=== PATIENT | female | born 1975 | race Caucasian/White ===

== ENCOUNTER 2017-02-03 13:17 | Emergency (ER) | payer BC ==
[~2017-02-03] VITALS: Ht 147.3 cm; Wt 65.8 kg
[~2017-02-03 13:17] MED LIST: CYMBALTA20 MG; MOTRIN800 M1; NORCO 10/325 MG1 TAB; SOMA250 MG PO
[2017-02-03 13:27] VITALS: BP 143/93
--- NOTE | 2017-02-03 13:59 | NUR ---
PATIENT PRESENTS TO ED WITH LEFT FLANK PAIN X 1 DAY. PT STATES SHE HAS NAUSEA . DENIES V/D; SKIN IS PINK/WARM/DRY; AAOX4 WITH EVEN AND STEADY GAIT; PT DENIES ANY FEVER, CP, SOB, OR COUGH AT THIS TIME; PATIENT STATES PAIN OF 10/10 AT THIS TIME; VSS; PATIENT POSITIONED FOR COMFORT; HOB ELEVATED;
[2017-02-03] MEDS ORDERED: KETOROLAC 60 MG/2 ML VIAL IM ONE (14:00)
--- NOTE | 2017-02-03 14:08 | NUR ---
PATIENT TAKEN TO CT VIA WHEEL CHAIR
--- NOTE | 2017-02-03 14:21 | NUR ---
PATIENT RETURED FROM CT, SITTING IN BED RESTING
--- NOTE | 2017-02-03 15:02 | NUR ---
Patient discharged with v/s stable. Written and verbal after care instructions given and explained. Patient alert, oriented and verbalized understanding of instructions. Ambulatory with steady gait. All questions addressed prior to discharge. ID band removed. Patient advised to follow up with PMD. Rx of CIPRO, FLAGYL, NORCO, MOTRIN given. Patient educated on indication of medication including possible reaction and side effects. Opportunity to ask questions provided and answered.
[2017-02-03 15:04] VITALS: BP 143/93
== END 2017-02-03 15:02 | disposition home or self-care (01) ==
LOC: MED 13:17
DX: K57.32 Diverticulitis of large intestine without perforation or abscess without bleeding (principal); J45.909 Unspecified asthma, uncomplicated; Z88.5 Allergy status to narcotic agent
CPT/HCPCS: 36415; 74176; 80053; 81001; 81025; 83690; 85025; 87086; 96372; 99285; J1885

== ENCOUNTER 2021-05-15 09:16 | Inpatient (IN) | payer BC, SELFPAY ==
[~2021-05-15] VITALS: Ht 147.3 cm; Wt 68.0 kg
[2021-05-15 09:27] VITALS: BP 124/67
--- NOTE | 2021-05-15 09:32 | NUR ---
Patient ambulated to bed 11. RN evaluating the patient at bedside.
[2021-05-15] MEDS ORDERED: MORPHINE SULFATE 4 MG/ML SYR ONE (09:46)
[2021-05-15] MEDS ORDERED: ONDANSETRON 4 MG/2 ML VIAL ONE (09:46)
[2021-05-15] MEDS ORDERED: MORPHINE SULFATE 4 MG/ML SYR IVP ONE (09:55)
[2021-05-15] MEDS ORDERED: ONDANSETRON 4 MG/2 ML VIAL IVP ONE (09:55)
--- NOTE | 2021-05-15 10:00 | NUR ---
PATIENT PRESENTS TO ED WITH ABD PAIN X1 WEEK, LOWER BACK PAIN X1 WEEK . PT STATES SHE HAS NOT HAD BM IN 9 DAYS . DENIES V/D; SKIN IS PINK/WARM/DRY; AAOX4 WITH EVEN AND STEADY GAIT; LUNGS CLEAR BL; HR EVEN AND REGULAR; PT DENIES ANY FEVER, CP, SOB, OR COUGH AT THIS TIME; PATIENT STATES PAIN OF 10/10 AT THIS TIME, STATES PAIN IS RADIATING THROUGHOUT ENTIRE ABDOMEN; VSS; PATIENT POSITIONED FOR COMFORT; HOB ELEVATED; BEDRAILS UP X2; BED DOWN. ER MD MADE AWARE OF PT STATUS.
--- NOTE | 2021-05-15 10:26 | NUR ---
PATIENT STATES PAIN HAS IMPROVED AT THIS TIME, PAIN IS STILL 5/10
[2021-05-15] MEDS ORDERED: DOXYCYCLINE 100 MG in DEXTROSE 5% 100 ML IV STA (11:42)
[2021-05-15] MEDS ORDERED: cefOXitin 2,000 MG in DEXTROSE 5% 50 ML IV ONE (11:45)
[2021-05-15 11:53] LABS: BASOPHILS # (AUTO) 0.2 K/uL (0.00-0.22); BASOPHILS % (AUTO) 1.1 % (0.0-2.0); EOSINOPHILS # (AUTO) 0.1 K/uL (0-0.4); EOSINOPHILS % (AUTO) 0.7 % (0.0-4.0); HEMATOCRIT 26.8 % (36-48); HEMOGLOBIN 9.2 g/dL (12.0-16.0); LYMPHOCYTES % (AUTO) 7.2 % (20.5-51.1); MEAN CORPUSCULAR HEMOGLOBIN 29 pg (27-31); MEAN CORPUSCULAR HGB CONC 34 g/dL (33-37); MEAN CORPUSCULAR VOLUME 85.8 fL (80-94); MONOCYTES # (AUTO) 0.6 K/uL (0.8-1.0); MONOCYTES % (AUTO) 4.5 % (1.7-9.3); NEUTROPHILS # (AUTO) 11.9 K/uL (1.8-7.7); NEUTROPHILS % (AUTO) 86.5 % (42.2-75.2); PLATELET COUNT (AUTO) 401 K/uL (140-450); RED BLOOD CELL COUNT(AUTO) 3.12 MIL/uL (4.20-5.40); RED CELL DISTRIBUTION WIDTH 13.4 % (11.6-13.7); WHITE BLOOD COUNT (AUTO) 13.8 K/uL (4.8-10.8)
[2021-05-15] MEDS ORDERED: DOXYCYCLINE 100 MG VIAL IV ONE (12:07)
[2021-05-15] MEDS ORDERED: KETOROLAC 30 MG/ML VIAL IVP ONE (12:15)
[2021-05-15] MEDS ORDERED: NACL 0.9% 1,000 ML IV ONE (14:00)
[2021-05-15 14:02] LABS: ALBUMIN 2.5 g/dL (3.4-5.0); ANION GAP 9.8 (8-16); CARBON DIOXIDE 28.7 mmol/L (21-32); CREATININE 0.8 mg/dL (0.6-1.3); POTASSIUM 3.5 mmol/L (3.5-5.1); TOTAL BILIRUBIN 0.5 mg/dL (0.0-1.0)
[2021-05-15 14:38] LABS: BILIRUBIN,URINE 1+ (NEGATIVE); BLOOD, URINE 2+ (NEGATIVE); COLOR,URINE YELLOW (YELLOW); LEUKOCYTE ESTERASE ,URINE TRACE (NEGATIVE); NITRITE, URINE POSITIVE (NEGATIVE); PH,URINE 6.5 (5.0-9.0); UGLUCOSE NEGATIVE (NEGATIVE)
[2021-05-15 14:50] LABS: APPEARANCE,URINE HAZY (CLEAR)
[2021-05-15 14:58] LABS: WBC,URINE 0-5 /HPF (0-5)
--- NOTE | 2021-05-15 15:09 | NUR ---
Spoke with admitting Dr. Duran and pt was down graded to med/surg
--- NOTE | 2021-05-15 16:13 | NUR ---
Patient will be admitted to care of [facility]. Admited to MED/SURG. Will go to room 112A. Belongings list completed. Report to RICH LOVING.
--- NOTE | 2021-05-15 16:30 | NUR ---
RECEIVED PT ALERT, AWAKE ORIENTED, AT BEDSIDE, PATIENT COOPERATIVE SKIN INTACT, ORIENT TO ROOM , CALL LIGHT, IV NORMAL SALINE STARTED 120ML, IV SITE INTACT, PATIENT AWARE NPO, ABDOMEN SOFT, HYPOACTIVE BOWEL SOUNDS, LAST BM 05/06, WILL INFORM MD, SKIN INTACT, NO NAUSE AND VOMITTING NOTED AT THIS TIME
[2021-05-15 16:47] VITALS: BP 104/62
--- NOTE | 2021-05-15 18:37 | NUR ---
PT IS RESTING IN BED, EDUCATION PROVIDED ON ENSURING PAIN DOES NOT BECOME UNTOLERABLE. PT IS STABLE. ALL SAFETY MEASURES IN PLACE, CALL LIGHT WITHIN REACH. WILL CONTINUE TO MONITOR.
--- NOTE | 2021-05-15 19:06 | NUR ---
PT ENDORSED TO MULTIPLE SCLEROSIS NURSE NURSE FOR CONTINUITY OF CARE. POC DISCUSSED
--- NOTE | 2021-05-15 19:07 | NUR ---
RECEIVED PATIENT FROM AM NURSE FOR CONTINUITY OF CARE. PATIENT IS A/A/O X4. RESTING IN BED, RESPIRATORY EVEN AND UNLABORED, ON ROOM AIR, NO SIGN OF DISTRESS NOTED. ABDOMEN SOFT, NON DISTENDED, MINIMAL TENDERNESS ON LEFT LOWER QUADRANT WITH DEEP PALPATION, BOWEL SOUND HYPOACTIVE, LAST BM WAS 05/06/2021. INFORMED MD BY AM NURSE. SKIN WARM, DRY, NON DIAPHORETIC, IV ON LEFT AC 20G, INTACT AND PATENT, IS INFUSING FLUID ORDER. PATIENT DENIES ANY PAIN OR DISCOMFORT. ABLE TO MAKE NEED KNOWN. PLAN OF CARE DISCUSSED, PATIENT VERBALIZED UNDERSTANDING. CALL LIGHT WITHIN REACH. WILL CONTINUE TO MONITOR.
[2021-05-15 20:00] VITALS: BP 96/54
--- NOTE | 2021-05-15 21:26 | NUR ---
TEXT DR WHITNEY TO INFORM THAT PATIENT COMPLAINS PAIN, PATIENT HAS NO PAIN MEDICATION PRN. TORB MORPHINE 2MG IV Q4H FOR MOD PAIN. MORPHINE 4MG IV Q4H FOR SEVERE PAIN. WILL FOLLOW ORDER.
[2021-05-15] MEDS: DOXYCYCLINE 100 MG in DEXTROSE 5% 100 ML IV SCH (21:27)
--- NOTE | 2021-05-15 21:27 | NUR ---
SCHEDULE MEDIATION GIVEN WITH EDUCATION. PATIENT VERBALIZED UNDERSTANDING. NO SIGN OF DISTRESS. CALL LIGHT WITHIN REACH. WILL CONTINUE TO MONITOR.
[2021-05-15] MEDS ORDERED: MORPHINE SULFATE 4 MG/ML SYR IVP PRN (21:35)
[2021-05-15] MEDS ORDERED: MORPHINE SULFATE 2 MG/ML SYR ONE (21:46)
--- NOTE | 2021-05-15 22:01 | NUR ---
PRN PAIN MEDICATION GIVEN WITH EDUCATION, PATIENT VERBALIZED UNDERSTANDING. PATIENT TOLERATED WELL. CALL LIGHT WITHIN REACH. WILL CONTINUE TO MONITOR.
--- NOTE | 2021-05-16 | NUR ---
ROUND CHECK. PATIENT IS SLEEPING, CHEST RISE AND FALL, NO SIGN OF DISTRESS NOTED. CALL LIGHT WITHIN REACH. WILL CONTINUE TO MONITOR.
--- NOTE | 2021-05-16 02:00 | NUR ---
ROUND CHECK. PATIENT IS SLEEPING, CHEST RISE AND FALL, NO SIGN OF DISTRESS NOTED. CALL LIGHT WITHIN REACH. WILL CONTINUE TO MONITOR.
[2021-05-16 04:00] VITALS: BP 105/65
--- NOTE | 2021-05-16 04:00 | NUR ---
PATIENT COMPLAINS PAIN ON LEFT LOWER ABDOMEN 6/10. PRN PAIN MEDICATION GIVEN WITH EDUCATION, PATIENT VERBALIZED UNDERSTANDING. TEMP 99.7F, COOLING MEASURE APPLIED, PATIENT TOLERATED WELL. CALL LIGHT WITHIN REACH. WILL CONTINUE TO MONITOR.
[2021-05-16] MEDS: MORPHINE SULFATE 2 MG/ML SYR IVP PRN ×4 (04:06→18:18)
--- NOTE | 2021-05-16 06:00 | NUR ---
RECHECK TEMP 99.[address] WHITNEY, WAITING FOR RESPONSE. PATIENT IS STABLE, DENIES ANY CHILL OR SWEATING. SKIN WARM, DRY, NON DIAPHORETIC. WILL CONTINUE TO MONITOR.
--- NOTE | 2021-05-16 07:05 | NUR ---
ENDORSED PATIENT TO AM NURSE FOR CONTINUITY OF CARE. PATIENT STABLE.
--- NOTE | 2021-05-16 07:20 | NUR ---
RECEIVED REPORT FROM SCREW MACHINE REPAIRER NURSE FOR CONTINUITY OF CARE. PATIENT SLEEPING IN BED. BREATHING EVEN AN UNLABORED. ALL SAFETY MEASURES IN PLACE WILL CONTINUE TO MONITOR.
--- NOTE | 2021-05-16 08:44 | NUR ---
PATIENT HAS BEEN SCREENED AND CATEGORIZED HIGH NUTRITION RISK. PATIENT WILL BE SEEN WITHIN 1-2 DAYS OF ADMISSION. 05/16/21-05/17/[address]
[2021-05-16] MEDS ORDERED: ZOLPIDEM 5 MG TAB PO PRN (09:20)
[2021-05-16] MEDS ORDERED: POTASSIUM CHLORIDE 10 MEQ TABER PO PRN (09:20)
[2021-05-16] MEDS ORDERED: MAG SULF 2000 MG/WATER PREMIX 50 ML IV PRN (09:20)
[2021-05-16] MEDS: NACL 0.9% 1,000 ML IV SCH ×2 (09:20→17:40)
[2021-05-16] MEDS ORDERED: ACETAMINOPHEN 325 MG TAB PO PRN (09:20)
[2021-05-16] MEDS ORDERED: ONDANSETRON 4 MG/2 ML VIAL IM/IVP PRN (09:20)
[2021-05-16] MEDS ORDERED: DOCUSATE SODIUM 100 MG GELCAP PO PRN (09:20)
[2021-05-16] MEDS ORDERED: LORazepam 2 MG/ML VIAL IM/IVP PRN (09:20)
--- NOTE | 2021-05-16 09:47 | NUR ---
PATIENT AWAKE IN BED. BREATHING IS EVEN AN UNLABORED. FAMILY AT BEDSIDE. ALL SAFETY MEASURES IN PLACE WILL CONTINUE TO MONITOR.
[2021-05-16] MEDS ORDERED: PANTOPRAZOLE 40 MG INJ VIAL IVP SCH (10:20)
[2021-05-16 10:53] LABS: BASOPHILS % (AUTO) 0.1 % (0.0-2.0); EOSINOPHILS # (AUTO) 0.1 K/uL (0-0.4); EOSINOPHILS % (AUTO) 0.8 % (0.0-4.0); HEMATOCRIT 28.7 % (36-48); HEMOGLOBIN 9.6 g/dL (12.0-16.0); LYMPHOCYTES # (AUTO) 0.8 K/uL (2.5-16.5); LYMPHOCYTES % (AUTO) 6.2 % (20.5-51.1); MEAN CORPUSCULAR HEMOGLOBIN 29 pg (27-31); MEAN CORPUSCULAR HGB CONC 34 g/dL (33-37); MEAN CORPUSCULAR VOLUME 86.5 fL (80-94); MONOCYTES # (AUTO) 0.5 K/uL (0.8-1.0); MONOCYTES % (AUTO) 3.9 % (1.7-9.3); NEUTROPHILS # (AUTO) 11.9 K/uL (1.8-7.7); PLATELET COUNT (AUTO) 450 K/uL (140-450); RED BLOOD CELL COUNT(AUTO) 3.32 MIL/uL (4.20-5.40); RED CELL DISTRIBUTION WIDTH 13.7 % (11.6-13.7); WHITE BLOOD COUNT (AUTO) 13.4 K/uL (4.8-10.8)
[2021-05-16] MEDS: DOXYCYCLINE 100 MG in DEXTROSE 5% 100 ML IV SCH (10:57)
[2021-05-16 11:08] LABS: PROTHROMBIN TIME 10.5 secs (10.8-13.4)
[2021-05-16 11:12] LABS: ALBUMIN 2.4 g/dL (3.4-5.0); ANION GAP 12.9 (8-16); CREATININE 0.8 mg/dL (0.6-1.3); POTASSIUM 3.9 mmol/L (3.5-5.1); TOTAL BILIRUBIN 0.7 mg/dL (0.0-1.0)
[2021-05-16 11:20] LABS: CHOL/HDL RATIO 6.9 (1-4.5); MAGNESIUM 2.1 mg/dL (1.8-2.4); PHOSPHORUS 2.8 mg/dL (2.5-4.9); THYROID STIMULATING HORMONE 0.84 uIU/mL (0.34-3.74)
[2021-05-16 12:00] VITALS: BP 105/54
--- NOTE | 2021-05-16 12:30 | NUR ---
PATIENT AWAKE AND ALERT. NO ACUTE DISTRESS NOTED. PATIENT REMAIN ON ROOM AIR NO DISTRESS NOTED. FAMILY AT BEDSIDE. ALL SAFETY MEASURES IN PLACE. WILL CONTINUE TO MONITOR.
--- NOTE | 2021-05-16 14:50 | NUR ---
05/16/21 RD INITIAL ASSESSMENT COMPLETED PLEASE REFER TO NUTRITION ASSESSMENT UNDER CARE ACTIVITY FOR ESTIMATED NUTRITIONAL NEEDS. 1. CONTINUE NPO MEDICALLY APPROPRIATE 2. IF/WHEN PATIENT IS MEDICALLY STABLE CONSIDER REGULAR DIET 3. RD TO FOLLOW-UP 3-5 DAYS, JONELLE MCKEON RD
--- NOTE | 2021-05-16 14:59 | NUR ---
PATIENT UP IN BED. NO ACUTE CHANGES NOTED. FAMILY AT BEDSIDE. ALL SAFETY MEASURES IN PLACE. WILL CONTINUE TO MONITOR.
--- NOTE | 2021-05-16 16:03 | NUR ---
DC PLANNING: SPOKE WITH PATIENT AT BEDSIDE. LIVES IN A GROUND FLOOR APARTMENT, HAS NO CARE DEFICITS, INDEPENDENT IN ALL ACTIVITIES. CONCERNED ABOUT OUT OF POCKET EXPENSE OF PPO INSURANCE. EXPLAINED THAT THE [employer]ANCE AGENT NEEDS TO SEE AND CLEAR HER FOR DISCHARGE OR TRANSFER, PATIENT STATES SHE UNDERSTANDS. CM WILL CONTINUE TO FOLLOW FOR NEEDS.
--- NOTE | 2021-05-16 16:24 | NUR ---
PATIENT AWAKE AND ALERT. BREATHING IS EVEN AND UNLABORED. PATIENT STATING GOING AMA IF OB DOES NOT SHOW UP. WILL FOLLOW UP WITH OB. ALL SAFETY MEASURES IN PLACE WILL CONTINUE TO MONITOR.
--- NOTE | 2021-05-16 16:50 | NUR ---
NOTIFIED PATIENT THAT DR. GASTON STATED THAT PATIENT DID NOT NEED SURGERY AT THE MOMENT BUT NEEDED TO CONTINUE ABX. PATIENT NOT HAPPY WITH RESPONSE AND STATED THAT SHE WANTED TO CHECK HER SELF OUT.
--- NOTE | 2021-05-16 17:05 | NUR ---
NOTIFY DR. HOFFMAN THAT PATIENT WANTS TO LEAVE AMA DUE TO INSURANCE NOT COVERING. DR. HOFFMAN SAID ITS BEST FOR PATIENT TO STAY AND COMPLETE ABX AND WILL HELP WITH TRANSFER. NOTIFIED PATIENT. PATIENT STILL WANTS TO LEAVE AMA.
[2021-05-16 18:29] LABS: BARBITURATE, URINE NEGATIVE ng/ml (NEG <=200); BENZODIAZEPINE, URINE NEGATIVE ng/mL (NEG <=200); CANNABINOID, URINE POSITIVE ng/mL (NEG <=50); COCAINE, URINE NEGATIVE ng/mL (NEG <=300); PHENCYCLIDINE SCREEN,URINE NEGATIVE ng/mL (NEG <=25)
[2021-05-16 18:30] LABS: OPIATE, URINE POSITIVE ng/mL (NEG <=2000)
--- NOTE | 2021-05-16 19:00 | NUR ---
ADVISE PATIENT THAT IT WAS BEST FOR HER TO STAY AND FINISH ABX. CHARGE NURSE ALSO TRIED TALKING WITH PATIENT. PATIENT VERBALIZE UNDERSTANDING BUT CONTINUE TO WANT TO LEAVE AMA.
--- NOTE | 2021-05-16 19:05 | NUR ---
PATIENT LEFT FACILITY AMA AND TOOK ALL HER BELONGING. AWARE.
[2021-05-16] MEDS ORDERED: LEVO500T98 PO (19:53)
[2021-05-17 08:08] LABS: T4 (THYROXINE) 8.5 ug/dL (4.5-12.0)
== END 2021-05-16 19:00 | disposition left against medical advice (07) | DRG 871 ==
LOC: MED 09:16 → MTU 14:03
DX: A41.9 Sepsis, unspecified organism (principal); E43 Unspecified severe protein-calorie malnutrition; N39.0 Urinary tract infection, site not specified; E87.1 Hypo-osmolality and hyponatremia; J45.909 Unspecified asthma, uncomplicated; N70.93 Salpingitis and oophoritis, unspecified; K59.00 Constipation, unspecified; E66.9 Obesity, unspecified; M79.7 Fibromyalgia; F15.10 Other stimulant abuse, uncomplicated; E83.51 Hypocalcemia; F12.10 Cannabis abuse, uncomplicated; E86.0 Dehydration; N83.201 Unspecified ovarian cyst, right side; D64.9 Anemia, unspecified; R74.01 Elevation of levels of liver transaminase levels; K75.81 Nonalcoholic steatohepatitis (NASH); N73.9 Female pelvic inflammatory disease, unspecified; K57.30 Diverticulosis of large intestine without perforation or abscess without bleeding; Z20.822 Contact with and (suspected) exposure to COVID-19; Z98.891 History of uterine scar from previous surgery; Z87.891 Personal history of nicotine dependence; Z88.5 Allergy status to narcotic agent; Z68.31 Body mass index [BMI] 31.0-31.9, adult
CPT/HCPCS: 36415; 76705; 76856; 80053; 80305; 81001; 83036; 83605; 83690; 83735; 83880; 84100; 84134; 84436; 84443; 85025; 85610; 85730; 87040; 87081; 87086; 87210; 87491; 96365; 96366; 96368; 96372; 96375; 99285; C9113; J0694; J0696; J1885; J2270; J2405; J3490; J7060